=== PATIENT | female | born 1940 | race Caucasian/White ===

== ENCOUNTER → 2016-12-13 | Outpatient (CLI) | payer MEDICARE, OTHER ==
[~2016-12-13] MED LIST: ASPI-231 PO; SIMV-8 PO; VALS160T43 PO
[2016-12-13 14:18] LABS: Basophils # (auto) 0 uL; Basophils % (auto) 0.4 % (0.0-2.0); Eosinophils # (auto) 0.2 uL; Eosinophils % (auto) 3.1 % (0.0-7.0); Hematocrit 42.7 % (36.0-46.0); Hemoglobin 14.1 g/dL (12.2-16.2); Lymphocytes # (auto) 2.1 uL; Lymphocytes % (auto) 32.9 % (10.0-50.0); Mean Corpuscular Hemoglobin 29.2 pg (28.0-32.0); Mean Corpuscular Hgb Conc. 33.1 g/dL (32.0-36.0); Mean Corpuscular Volume 88.3 fL (80.0-100.0); Mean Platelet Volume 8.4 fL (7.4-10.4); Monocytes # (auto) 0.5 uL; Monocytes % (auto) 7.6 % (0.0-12.0); Neutrophils # (auto) 3.6 uL; Platelet Count (auto) 285 10^3/uL (140-450); Red Cell Distribution Width 13.8 % (11.6-16.0); White Blood Cell 6.5 10^3/uL (4.4-10.8)
[2016-12-13 14:29] LABS: Partial Thromboplastin Time 26.7 sec (22.64-33.71); Prothrombin Time 10.3 sec (9.37-12.3)
[2016-12-13 14:33] LABS: Albumin 3.9 g/dL (3.4-5.0); BUN/Creatinine Ratio 21.3; Calcium 8.7 mg/dL (8.5-10.1); Potassium 3.8 mmol/L (3.5-5.1)
[2016-12-13 14:34] LABS: Urine Bilirubin Negative (Negative); Urine Blood Negative /uL (Negative); Urine Color Yellow (Yellow); Urine Glucose Normal (Normal); Urine Ketone Negative (Negative); Urine Nitrite Negative (Negative); Urine RBC 1 /hpf (0 - 4); Urine Squamous Epithelial Cell FEW /hpf (<5); Urine Urobilinogen Normal (Negative); Urine pH 6.5 (5.0-8.0)
[2016-12-13 14:36] LABS: Bilirubin, Total 0.8 mg/dL (0.2-1.0); Total Protein 7.6 g/dL (6.4-8.2)
== END | disposition home or self-care (01) ==
LOC: LAB 13:50
PROVIDERS: ATTEND Podiatrist Foot & Ankle Surgery
DX: Z00.00 Encounter for general adult medical examination without abnormal findings (principal)
CPT/HCPCS: 36415; 80053; 81001; 85025; 85610; 85730

== ENCOUNTER 2016-12-19 08:00 | Day surgery (SDC) | payer MEDICARE, OTHER ==
[~2016-12-19] VITALS: Ht 167.6 cm; Wt 90.7 kg
[2016-12-19] MEDS ORDERED: CLINDAMYCIN 600MG IV 50 ML IV ONE (08:11)
[2016-12-19] MEDS ORDERED: KETOROLAC TROMETH 60MG/2ML VIAL IM ONE (10:40)
[2016-12-19] MEDS ORDERED: ONDANSETRON HCL 4 MG/2 ML VIAL ONE (10:40)
[2016-12-19] MEDS ORDERED: fentaNYL CITRATE 100 MCG/2 ML VL ONE (10:40)
[2016-12-19] MEDS ORDERED: MIDAZOLAM HCL 1MG/1ML-2 ML VIAL ONE (10:40)
[2016-12-19] MEDS ORDERED: DEXAMETHASONE SOD PHOS 10MG/1ML VIAL INJ ONE (10:40)
[2016-12-19] MEDS ORDERED: ONDANSETRON HCL 4 MG/2 ML VIAL IV ONE (11:30)
[2016-12-19] MEDS ORDERED: HYDROmorphone HCL 2 MG/ML VL IV PRN (11:30)
[2016-12-19 12:04] VITALS: BP 134/69
[2016-12-19] MEDS ORDERED: PROPOFOL 10 MG/ML 20 ML IV ONE (12:11)
[2016-12-19] MEDS ORDERED: ceFAZolin 1GM VL IV ONE (12:11)
[2016-12-19] MEDS ORDERED: BUPIVACAINE 0.75% INJ 10ML MPV SDV IJ ONE (12:11)
== END 2016-12-19 12:36 | disposition home or self-care (01) ==
LOC: SUR 08:00
PROVIDERS: ATTEND Podiatrist Foot & Ankle Surgery
DX: M21.612 Bunion of left foot (principal); E66.9 Obesity, unspecified
CPT/HCPCS: 28296; 73620; 76000; C1713; C1769; J0690; J1100; J1885; J2250; J2405; J2704; J3010; J3490; V2790

== ENCOUNTER → 2018-12-10 | Outpatient (CLI) | payer MEDICARE, OTHER | END | disposition home or self-care (01) | LOC: Rad HDHVI 15:54 | PROVIDERS: ATTEND Internal Medicine Cardiovascular Disease | DX: M17.12 Unilateral primary osteoarthritis, left knee (principal); M11.262 Other chondrocalcinosis, left knee | CPT/HCPCS: 73700 ==

== ENCOUNTER 2022-11-10 11:38 | Inpatient (IN) | payer MEDICARE, OTHER ==
[~2022-11-10] VITALS: Ht 167.6 cm; Wt 95.6 kg
[~2022-11-10 11:38] MED LIST changes: -ASPI-231 PO; +ASPI1TAB20 PO
[2022-11-10] MEDS ORDERED: HYDROmorphone HCL 2 MG/ML VL/or syr IV ONE (12:15)
[2022-11-10] MEDS ORDERED: ONDANSETRON HCL 4 MG/2 ML VIAL IV ONE (12:15)
[2022-11-10 12:44] LABS: Basophils # (auto) 0 10 ^3/uL (0-0.2); Basophils % (auto) 0.4 % (0.0-2.0); Eosinophils # (auto) 0.1 10 ^3/uL (0-0.8); Eosinophils % (auto) 1.1 % (0.0-7.0); Hematocrit 37.5 % (36.0-46.0); Hemoglobin 12.5 g/dL (12.2-16.2); Lymphocytes # (auto) 1.7 10 ^3/uL (0.4-5.4); Lymphocytes % (auto) 28.4 % (10.0-50.0); Mean Corpuscular Hemoglobin 28.7 pg (28.0-32.0); Mean Corpuscular Hgb Conc. 33.2 g/dL (32.0-36.0); Mean Corpuscular Volume 86.5 fL (80.0-100.0); Monocytes # (auto) 0.5 10 ^3/uL (0-1.3); Monocytes % (auto) 8.4 % (0.0-12.0); Neutrophils # (auto) 3.6 10 ^3/uL (1.6-8.6); Neutrophils % (auto) 61.7 % (37.0-80.0); Nucleated Red Blood Cells % 0.2 %; Red Blood Cells 4.34 10^6/uL (4.0-5.20); White Blood Cell 5.9 10^3/uL (4.4-10.8)
[2022-11-10 12:53] LABS: Partial Thromboplastin Time 29.6 sec (24.6-33.4)
[2022-11-10 12:55] LABS: Albumin 3.3 g/dL (3.4-5.0); Calcium 9.2 mg/dL (8.5-10.1)
[2022-11-10 13:00] LABS: Urine Bacteria NONE SEEN /hpf (None Seen); Urine Blood Negative /uL (Negative); Urine Specific Gravity 1.021 (1.001-1.035); Urine WBC 2 /hpf (0 - 5)
[2022-11-10 13:03] LABS: BUN/Creatinine Ratio 28.6; Bilirubin, Total 0.6 mg/dL (0.2-1.0); CRP High Sensitivity 9.63 mg/dL (< 0.3); Total Protein 8.3 g/dL (6.4-8.2)
[2022-11-10] MEDS ORDERED: HYDROcodone-ACET 10/325MG TAB PO ONE ×2 (14:00→21:15)
[2022-11-10] MEDS ORDERED: levoFLOXacin 500MG 100 ML IV ONE (21:15)
[2022-11-10] MEDS ORDERED: ACETAMINOPHEN 325 MG TAB PO PRN (21:15)
[2022-11-10] MEDS ORDERED: MORPHINE SULFATE INJ 2 MG/ml SYRG IV PRN ×2 (21:15→22:15)
[2022-11-10] MEDS ORDERED: DOCUSATE SOD 100 MG CAP PO PRN (21:15)
[2022-11-10] MEDS ORDERED: SODIUM CHLORIDE 0.9% 1,000 ML IV SCH (21:15)
[2022-11-10] MEDS ORDERED: ONDANSETRON HCL 4 MG/2 ML VIAL IV PRN (21:15)
[2022-11-10] MEDS ORDERED: hydrALAZINE HCL 20 MG/ML VL IV PRN (21:15)
[2022-11-10] MEDS ORDERED: NITROGLYCERIN 0.4 MG SL TAB SL PRN (22:15)
[2022-11-10] MEDS: ASCORBIC ACID 500 MG TAB PO SCH (22:51)
[2022-11-10] MEDS: FAMOTIDINE (10MG/ML) 2ML VL IV SCH (22:51)
[2022-11-10] MEDS: HYDROcodone-ACET 5/325MG TAB PO PRN (22:51)
[2022-11-11] MEDS: HYDROcodone-ACET 5/325MG TAB PO PRN ×4 (02:50→21:42)
[2022-11-11 06:17] LABS: Basophils # (auto) 0 10 ^3/uL (0-0.2); Basophils % (auto) 0.2 % (0.0-2.0); Eosinophils # (auto) 0.1 10 ^3/uL (0-0.8); Eosinophils % (auto) 2.5 % (0.0-7.0); Hematocrit 33.2 % (36.0-46.0); Hemoglobin 11.2 g/dL (12.2-16.2); Lymphocytes # (auto) 1.8 10 ^3/uL (0.4-5.4); Lymphocytes % (auto) 37.6 % (10.0-50.0); Mean Corpuscular Hemoglobin 28.7 pg (28.0-32.0); Mean Corpuscular Hgb Conc. 33.7 g/dL (32.0-36.0); Mean Corpuscular Volume 85.3 fL (80.0-100.0); Monocytes # (auto) 0.5 10 ^3/uL (0-1.3); Neutrophils # (auto) 2.4 10 ^3/uL (1.6-8.6); Neutrophils % (auto) 48.7 % (37.0-80.0); Nucleated Red Blood Cells % 0.2 %; Red Cell Distribution Width 13.6 % (11.8-14.3); White Blood Cell 4.9 10^3/uL (4.4-10.8)
[2022-11-11 06:40] LABS: Albumin 2.8 g/dL (3.4-5.0); Potassium 4.6 mmol/L (3.5-5.1)
[2022-11-11 06:44] LABS: Bilirubin, Total 0.6 mg/dL (0.2-1.0); Calcium 8.5 mg/dL (8.5-10.1); Total Protein 6.5 g/dL (6.4-8.2)
[2022-11-11] MEDS: FAMOTIDINE (10MG/ML) 2ML VL IV SCH ×2 (09:43→21:43)
[2022-11-11] MEDS: ZINC SULFATE 220mg CAP or TAB PO SCH (09:44)
[2022-11-11] MEDS: ASPirin 81 mg TAB PO SCH (09:44)
[2022-11-11] MEDS: ENOXAPARIN SOD 40 MG/0.4 ML SYRINGE SC SCH (09:45)
[2022-11-11] MEDS: ASCORBIC ACID 500 MG TAB PO SCH ×2 (09:45→21:43)
[2022-11-11] MEDS ORDERED: PATIENTS OWN MEDICATION (Simvastatin 1 TAB) PO SCH (18:00)
[2022-11-11 21:30] VITALS: BP 156/50
[2022-11-11] MEDS: levoFLOXacin 500MG 100 ML IV SCH (21:42)
[2022-11-11 22:00] VITALS: BP 156/50
[2022-11-11] MEDS ORDERED: ATOR40TA52 PO (22:18)
[2022-11-12] MEDS: HYDROcodone-ACET 5/325MG TAB PO PRN ×4 (02:18→19:54)
[2022-11-12 05:00] VITALS: BP 158/59
[2022-11-12 06:33] LABS: Basophils # (auto) 0 10 ^3/uL (0-0.2); Basophils % (auto) 0.3 % (0.0-2.0); Eosinophils # (auto) 0.2 10 ^3/uL (0-0.8); Eosinophils % (auto) 3.2 % (0.0-7.0); Hemoglobin 11.6 g/dL (12.2-16.2); Lymphocytes # (auto) 1.7 10 ^3/uL (0.4-5.4); Lymphocytes % (auto) 25.8 % (10.0-50.0); Mean Corpuscular Hemoglobin 28.7 pg (28.0-32.0); Monocytes # (auto) 0.5 10 ^3/uL (0-1.3); Monocytes % (auto) 7.1 % (0.0-12.0); Neutrophils # (auto) 4.1 10 ^3/uL (1.6-8.6); Neutrophils % (auto) 63.6 % (37.0-80.0); Red Blood Cells 4.03 10^6/uL (4.0-5.20); Red Cell Distribution Width 13.7 % (11.8-14.3); White Blood Cell 6.5 10^3/uL (4.4-10.8)
[2022-11-12 06:40] LABS: BUN/Creatinine Ratio 24.7; Potassium 4.5 mmol/L (3.5-5.1)
[2022-11-12] MEDS: ASPirin 81 mg TAB PO SCH (08:03)
[2022-11-12 09:00] VITALS: BP 161/69
[2022-11-12] MEDS: ENOXAPARIN SOD 40 MG/0.4 ML SYRINGE SC SCH (09:00)
[2022-11-12] MEDS: ASPirin-EC 81 mg tab PO SCH (09:00)
[2022-11-12] MEDS: FAMOTIDINE (10MG/ML) 2ML VL IV SCH (10:53)
[2022-11-12] MEDS: ZINC SULFATE 220mg CAP or TAB PO SCH (10:53)
[2022-11-12] MEDS: ASCORBIC ACID 500 MG TAB PO SCH ×2 (10:53→21:11)
[2022-11-12] MEDS: VALSARTAN 80 MG TAB PO SCH (10:54)
[2022-11-12] MEDS: HCTZ 25 MG TAB PO SCH (10:55)
[2022-11-12 13:00] VITALS: BP 157/63
[2022-11-12 16:45] VITALS: BP 150/55
[2022-11-12 17:30] VITALS: BP 130/50
[2022-11-12] MEDS: levoFLOXacin 500MG 100 ML IV SCH (21:11)
[2022-11-12 22:00] VITALS: BP 130/46
[2022-11-12] MEDS ORDERED: ATORVASTATIN 20 MG TAB PO SCH (22:00)
[2022-11-13 05:00] VITALS: BP 141/56
[2022-11-13 09:00] VITALS: BP 133/60
[2022-11-13 10:38] VITALS: BP 133/60
[2022-11-13] MEDS: HYDROcodone-ACET 5/325MG TAB PO PRN (11:16)
[2022-11-13] MEDS: ZINC SULFATE 220mg CAP or TAB PO SCH (11:16)
[2022-11-13] MEDS: ASPirin-EC 81 mg tab PO SCH (11:17)
[2022-11-13] MEDS: HCTZ 25 MG TAB PO SCH (11:17)
[2022-11-13] MEDS: ENOXAPARIN SOD 40 MG/0.4 ML SYRINGE SC SCH (11:17)
[2022-11-13] MEDS: ASCORBIC ACID 500 MG TAB PO SCH (11:26)
[2022-11-13] MEDS: VALSARTAN 80 MG TAB PO SCH (11:27)
== END 2022-11-13 12:00 | disposition home or self-care (01) | DRG 560 ==
LOC: ER 11:38 → OVERFLOW 22:14 → CENTRAL 11-11 21:10
PROVIDERS: ADMIT Nurse Practitioner Family; ATTEND Internal Medicine Geriatric Medicine
DX: T84.54XA Infection and inflammatory reaction due to internal left knee prosthesis, initial encounter (principal); M00.9 Pyogenic arthritis, unspecified; N39.0 Urinary tract infection, site not specified; Z96.652 Presence of left artificial knee joint; Z20.822 Contact with and (suspected) exposure to COVID-19; Y83.8 Other surgical procedures as the cause of abnormal reaction of the patient, or of later complication, without mention of misadventure at the time of the procedure; I10 Essential (primary) hypertension; Z83.3 Family history of diabetes mellitus; Z88.0 Allergy status to penicillin; Z88.8 Allergy status to other drugs, medicaments and biological substances; Y92.89 Other specified places as the place of occurrence of the external cause
CPT/HCPCS: 36415; 71045; 73560; 73700; 80048; 80053; 81001; 85025; 85610; 85652; 85730; 86141; 86850; 86900; 86901; 87086; 87426; 93005; 93926; G0378; J1956; J3490